=== PATIENT | female | born 2000 | race Caucasian/White ===

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

== ENCOUNTER 2019-08-01 01:25 | Emergency (ER) | payer SELFPAY ==
[~2019-08-01] VITALS: Ht 160 cm; Wt 55.0 kg
[2019-08-01 01:30] VITALS: BP 126/88
--- NOTE | 2019-08-01 02:05 | NUR ---
PT RESTING IN BED, VSS, BOYFRIEND AT BEDSIDE
--- NOTE | 2019-08-01 03:04 | NUR ---
PT UP TO BR, AMBULATES WITH STEADY GAIT, BOYFRIEND AT SIDE, NO COMPLAINTS
== END 2019-08-01 04:01 | disposition home or self-care (01) ==
LOC: ED 03:55
DX: F10.120 Alcohol abuse with intoxication, uncomplicated (principal); G92 Toxic encephalopathy; Y90.9 Presence of alcohol in blood, level not specified
CPT/HCPCS: 99283